=== PATIENT | male | born 1960 | race Caucasian/White ===

== ENCOUNTER 2018-03-23 11:43 | Outpatient (CLI) | payer OTHER | END 2018-03-23 20:23 | disposition home or self-care (01) | LOC: SRD 11:43 | PROVIDERS: ATTEND Internal Medicine | DX: M77.31 Calcaneal spur, right foot (principal); M20.11 Hallux valgus (acquired), right foot; M21.41 Flat foot [pes planus] (acquired), right foot ==

== ENCOUNTER 2020-10-07 15:19 | Outpatient (CLI) | payer OTHER | END 2020-10-07 20:30 | disposition home or self-care (01) | LOC: SRD 15:19 | PROVIDERS: ATTEND Internal Medicine | DX: M25.511 Pain in right shoulder (principal) | CPT/HCPCS: 73030 ==